=== PATIENT | male | born 1955 | race Hispanic/Latino ===

== ENCOUNTER 2018-07-21 08:15 | Emergency (ER) | payer BC ==
[2018-07-21] MEDS ORDERED: KETOROLAC 30 MG/ML INJ ONE (09:12)
[2018-07-21 09:17] LABS: Albumin 4.5 g/dL (3.4-5.0); Bilirubin Direct 0.3 mg/dL (0-0.2); Protein, Total 8.1 g/dL (6.4-8.2)
--- NOTE | 2018-07-21 09:24 | RAD REPORT ---
EXAM DESCRIPTION: CT - Stone Protocol - 07/21/2018 9:07 am CLINICAL HISTORY: Abdominal pain, right flank pain COMPARISON: None. TECHNIQUE: Axial 5 mm thick images were obtained without oral or IV contrast. The [id number] span s the entirety of the system including uppermost abdomen and lung bases. All CT scans are performed using dose optimization technique as appropriate and may include automated exposure control or mA/KV adjustment according to patient size. FINDINGS: Mild right-sided hydronephrosis is present secondary to a 5 millimeter distal right ureter al stone. This is less than 1 centimeter from the UVJ. Right kidney is mildly edematous and there is perinephric stranding present. No other obstructing or nonobstructing calculi on the right. No left-s ided kidney or left collecting system abnormality. No suspicious renal masses. Isodense masses and py elonephritis are not excluded on a stone protocol CT scan. No urinary bladder suspicious finding. No significant adrenal finding. No significant prostate gland finding. There is diffuse fatty infiltration of the liver. A 15 millimeter round low-density mass midline left lobe of the liver is most likely a cyst but not fully characterized. Spleen and pancreas show no vanessa picious findings. Multiple gallstones are present. No acute gallbladder finding seen. No biliary tree dilatation. No suspicious bowel findings. No mass or bulky lymphadenopathy. Small to moderate-sized fat only left inguinal hernia present. No f ree air, free fluid or pneumatosis. No significant bony abnormality. IMPRESSION: Mild right-sided hydronephrosis secondary to a 5 millimeter stone less than 1 centimeter from the UVJ. Isodense masses and pyelonephritis are not excluded on stone protocol technique. Multi stone cholelithiasis without active disease suspected. Diffuse fatty infiltration of the liver. Additional nonacute findings detailed in the body of the report.
[2018-07-21 09:43] LABS: Urine Bacteria NONE SEEN /HPF (NONE SEEN); Urine Culture Reflex Order NOT NEEDED; Urine RBC <5 /HPF (NONE SEEN)
--- NOTE | 2018-07-21 09:56 | ER ---
Nurse's Notes [facility] Name: Reese Goodrich Age: 62 yrs Sex: Male : 1955 Arrival Date: 07/21/2018 Time: 08:19 Bed 18 Private MD: Diagnosis: Hydronephrosis with renal and ureteral calculous obstruction Presentation: 07/21 08:20 Presenting complaint: Patient states: intermittent R flank pain that radiates to R ss lower quadrant that began 3 months ago, but has gotten much worse this morning at 0130. Pt also c/o nausea and unable to empty bladder. Transition of care: patient was not received from another setting of care. Onset of symptoms is unknown. Risk Assessment: Do you want to hurt yourself or someone else? Patient reports no desire to harm self or others. Initial Sepsis Screen: Does the patient meet any 2 criteria? No. Patient's initial sepsis screen is negative. Does the patient have a suspected source of infection? No. Patient's initial sepsis screen is negative. Care prior to arrival: None. 08:20 Method Of Arrival: Ambulatory ss 08:20 Acuity: NIKA 3 ss Historical: - Allergies: 08:23 No Known Allergies; ss - Home Meds: 08:23 None [Active]; ss - PMHx: 08:23 None; ss - PSHx: 08:23 Hernia repair; ss - Immunization history:: Adult Immunizations up to date. - Social history:: Smoking status: Patient/guardian denies using tobacco. - Ebola Screening: : Patient denies exposure to infectious person Patient denies travel to an Ebola-affected area in the 21 days before illness onset. Screenin:26 Abuse screen: Denies threats or abuse. Denies injuries from another. Nutritional ss screening: No deficits noted. Tuberculosis screening: No symptoms or risk factors identified. Never had TB. Fall Risk None identified. Assessment: 08:26 General: Appears uncomfortable, Behavior is calm, cooperative, Seems very ss uncomfortable, but is laughing with spouse and ED staff. Denies fever, feeling ill, fatigue, chills. Pain: Complains of pain in R flank Pain radiates to right lower quadrant Pain currently is 10 out of 10 on a pain scale. Quality of pain is described as sharp, stabbing, Pain began 3 months ago, but has gotten much more severe at 0130 this morning Is continuous, Noted to be grimacing. Pain: Noted to be guarding. Neuro: Level of Consciousness is awake, alert, obeys commands, Oriented to person, place, time, situation. Cardiovascular: Capillary refill < 3 seconds is brisk in bilateral fingers. Respiratory: Airway is patent Respiratory effort is even, unlabored, Respiratory pattern is regular, symmetrical. GI: Bowel sounds present X 4 quads. Abd is soft X 4 quads Reports nausea, Patient currently denies diarrhea, vomiting. : Reports inability to empty bladder since 0130 this am. Just small frequent amounts Denies. EENT: Nares are clear Oral mucosa is moist. Throat is clear. Derm: Skin is intact, is healthy with good turgor, Skin is dry, Skin is pink, warm \T\ dry. normal. Musculoskeletal: Circulation, motion, and sensation intact. Capillary refill < 3 seconds, is brisk, in bilateral fingers. Range of motion: intact in all extremities, Swelling absent. 09:44 Reassessment: Patient appears in no apparent distress at this time. Patient and/or em family updated on plan of care and expected duration. Pain level reassessed. Patient is alert, oriented x 3, equal unlabored respirations, skin warm/dry/pink. rates pain 5/10 Patient states feeling better. 10:25 Reassessment: Patient appears in no apparent distress at this time. Patient and/or em family updated on plan of care and expected duration. Pain level reassessed. Patient is alert, oriented x 3, equal unlabored respirations, skin warm/dry/pink. Patient denies pain at this time. Patient states feeling better. Patient states symptoms have improved. Vital Signs: 08:23 BP 157 / 111; Pulse 90; Resp 17; Temp 97.8(TE); Pulse Ox 97% on R/A; Weight 83.91 kg; Height 5 ft. 6 in. (167.64 cm); Pain 10/10; 09:23 BP 157 / 105; Pulse 88; Resp 18; Pulse Ox 97% on R/A; dh3 10:21 BP 143 / 96; Pulse 72; Resp 16; Pulse Ox 99% on R/A; Pain 0/10; em 08:23 Body Mass Index 29.86 (83.91 kg, 167.64 cm) ED Course: 08:19 Patient arrived in ED. as 08:22 Triage completed. 08:23 Arm band placed on right wrist. 08:26 Mary To, RN is Primary Nurse. 08:26 Patient has correct armband on for positive identification. Bed in low position. Call light in reach. Side rails up X 1. 08:26 Patient maintains SpO2 saturation greater than 95% on room air. 08:29 Inserted saline lock: 18 gauge in right antecubital area, using aseptic technique. 3 Blood collected. 08:42 Yuniel Schafer MD is Attending Physician. gs 09:04 CT completed. Patient moved to CT via wheelchair. Patient moved back from CT. bq 09:07 CT Stone Protocol In Process Unspecified. EDMS 09:20 Urine collected: clean catch specimen, clear. 3 09:55 Elsa Carmen MD is Referral Physician. gs 10:09 No provider procedures requiring assistance completed. IV discontinued, intact, em bleeding controlled, No redness/swelling at site. Pressure dressing applied. Administered Medications: 09:14 Drug: TORadol 30 mg Route: IVP; Site: right antecubital; ss 09:44 Follow up: Response: No adverse reaction; Pain is decreased em Outcome: 09:55 Discharge ordered by MD. gs 10:23 Discharged to home ambulatory, with family. em 10:23 Condition: good 10:23 Discharge instructions given to patient, family, Instructed on discharge instructions, follow up and referral plans. medication usage, Demonstrated understanding of instructions, follow-up care, medications, Prescriptions given X 1. 10:25 Patient left the ED. em Signatures: Dispatcher [employer] EDID Kaylyn Baez bq Jose Navas, SPAGHETTI MACHINE OPERATOR SPAGHETTI MACHINE OPERATOR em Mulu Gatica Shelby, NUNU RN June Ramires 3 Yuniel Schafer MD MD
--- NOTE | 2018-07-21 09:56 | EDPHYS ---
Physician Documentation [facility] Name: Reese Goodrich Age: 62 yrs Sex: Male : 1955 Arrival Date: 07/21/2018 Time: 08:19 Bed 18 Private MD: ED Physician Yuniel Schafer HPI: 07/21 09:53 This 62 yrs old Male presents to ER via Ambulatory with complaints of Flank gs Pain, Abdominal Pain. 09:53 The patient complains of pain in the right low back. The pain radiates to the right gs lower quadrant. Onset: The symptoms/episode began/occurred this morning. Modifying factors: The symptoms are alleviated by nothing. the symptoms are aggravated by nothing. Associated signs and symptoms: Pertinent negatives: hematuria. Severity of pain: At its worst the pain was severe in the emergency department the pain has improved mildly. The patient has experienced similar episodes in the past, a few times, but today's symptoms are worse. The patient has not recently seen a physician. Historical: - Allergies: 08:23 No Known Allergies; ss - Home Meds: 08:23 None [Active]; ss - PMHx: 08:23 None; ss - PSHx: 08:23 Hernia repair; ss - Immunization history:: Adult Immunizations up to date. - Social history:: Smoking status: Patient/guardian denies using tobacco. - Ebola Screening: : Patient denies exposure to infectious person Patient denies travel to an Ebola-affected area in the 21 days before illness onset. ROS: 09:53 All other systems are negative. gs Exam: 09:53 Head/Face: Normocephalic, atraumatic. Eyes: Pupils equal round and reactive to light, gs extra-ocular motions intact. Lids and lashes normal. Conjunctiva and sclera are non-icteric and not injected. Cornea within normal limits. Periorbital areas with no swelling, redness, or edema. ENT: Nares patent. No nasal discharge, no septal abnormalities noted. Tympanic membranes are normal and external auditory canals are clear. Oropharynx with no redness, swelling, or masses, exudates, or evidence of obstruction, uvula midline. Mucous membranes moist. Neck: Trachea midline, no thyromegaly or masses palpated, and no cervical lymphadenopathy. Supple, full range of motion without nuchal rigidity, or vertebral point tenderness. No Meningismus. Chest/axilla: Normal chest wall appearance and motion. Nontender with no deformity. No lesions are appreciated. 09:53 Cardiovascular: Regular rate and rhythm with a normal S1 and S2. No gallops, murmurs, or rubs. Normal PMI, no JVD. No pulse deficits. Respiratory: Lungs have equal breath sounds bilaterally, clear to auscultation and percussion. No rales, rhonchi or wheezes noted. No increased work of breathing, no retractions or nasal flaring. Abdomen/GI: Soft, non-tender, with normal bowel sounds. No distension or tympany. No guarding or rebound. No evidence of tenderness throughout. Skin: Warm, dry with normal turgor. Normal color with no rashes, no lesions, and no evidence of cellulitis. MS/ Extremity: Pulses equal, no cyanosis. Neurovascular intact. Full, normal range of motion. Neuro: Awake and alert, GCS 15, oriented to person, place, time, and situation. Cranial nerves II-XII grossly intact. Motor strength 5/5 in all extremities. Sensory grossly intact. Cerebellar exam normal. Normal gait. 09:53 Constitutional: The patient appears alert, awake. 09:53 Constitutional: The patient appears uncomfortable. 09:53 Back: CVA tenderness, that is mild, is noted on the right. Vital Signs: 08:23 BP 157 / 111; Pulse 90; Resp 17; Temp 97.8(TE); Pulse Ox 97% on R/A; Weight 83.91 kg; ss Height 5 ft. 6 in. (167.64 cm); Pain 10/10; 09:23 BP 157 / 105; Pulse 88; Resp 18; Pulse Ox 97% on R/A; dh3 10:21 BP 143 / 96; Pulse 72; Resp 16; Pulse Ox 99% on R/A; Pain 0/10; em 08:23 Body Mass Index 29.86 (83.91 kg, 167.64 cm) ss MDM: 08:47 Patient medically screened. gs 09:53 Differential diagnosis: nephrolithiasis, pyelonephritis, UTI. Data reviewed: vital gs signs, nurses notes. Counseling: I had a detailed discussion with the patient and/or guardian regarding: the historical points, exam findings, and any diagnostic results supporting the discharge/admit diagnosis, the presence of at least one elevated blood pressure reading (>120/80) during this emergency department visit, lab results, radiology results, the need for outpatient follow up, a urologist. Response to treatment: the patient's symptoms have markedly improved after treatment, and as a result, I will discharge patient. Special discussion: I have referred the patient to see his PCP for further evaluation of high blood pressure. 07/21 08:49 Order name: Creatinine for Radiology; Complete Time: 09:45 07/21 08:49 Order name: Hepatic Function; Complete Time: 09:45 gs 07/21 08:49 Order name: Lipase; Complete Time: 09:45 gs 07/21 08:49 Order name: Urine Microscopic Only; Complete Time: 09:45 07/21 08:49 Order name: CT Stone Protocol; Complete Time: 09:45 07/21 09:33 Order name: Urine Dipstick--Ancillary (enter results) bd 07/21 08:49 Order name: IV Saline Lock; Complete Time: 08:55 07/21 08:49 Order name: Labs collected and sent; Complete Time: 08:55 07/21 08:49 Order name: Urine Dipstick-Ancillary (obtain specimen); Complete Time: 09:23 gs Administered Medications: 09:14 Drug: TORadol 30 mg Route: IVP; Site: right antecubital; 09:44 Follow up: Response: No adverse reaction; Pain is decreased em Disposition: 07/21/18 09:55 Discharged to Home. Impression: Hydronephrosis with renal and ureteral calculous obstruction. - Condition is Stable. - Discharge Instructions: Kidney Stones, Hydronephrosis. - Prescriptions for Tylenol- Codeine #4 300-60 mg Oral Tablet - take 1 tablet by ORAL route every 6 hours As needed; 12 tablet. - Medication Reconciliation Form, Thank You Letter, Antibiotic Education, Prescription Opioid Use form. - Follow up: Elsa Carmen MD; When: 2 - 3 days; Reason: Re-evaluation by your physician. Signatures: Dispatcher [employer] EDOK Jose Navas LVN LVN em Smirch, Shelby, RN RN ss Yuniel Schafer MD MD Corrections: (The following items were deleted from the chart) 09:03 08:50 Stone Protocol ordered. EDMS EDMS 10:25 09:55 07/21/2018 09:55 Discharged to Home. Impression: Hydronephrosis with renal and em ureteral calculous obstruction. Condition is Stable. Forms are Medication Reconciliation Form, Thank You Letter, Antibiotic Education, Prescription Opioid Use. Follow up: Elsa Carmen; When: 2 - 3 days; Reason: Re-evaluation by your physician. gs
[2018-07-21 10:32] VITALS: TEMP 97.8
[2018-07-21 10:35] VITALS: BP 143/96; O2SAT 99
[2018-07-21 14:48] LABS: Urine Blood NEGATIVE (NEG); Urine Glucose NEGATIVE (NEG); Urine Protein TRACE (NEG)
== END 2018-07-21 10:25 | disposition home or self-care (01) ==
LOC: ER 08:15
DX: N13.2 Hydronephrosis with renal and ureteral calculous obstruction (principal)
CPT/HCPCS: 36415; 74176; 76377; 80076; 81003; 81015; 83690; 96374; 99285

== ENCOUNTER 2018-07-22 17:08 | Observation (INO) | payer BC ==
[2018-07-22] MEDS ORDERED: NA CHLORIDE 0.9% 1,000 ML ONE (18:19)
[2018-07-22] MEDS ORDERED: ONDANSETRON 4 MG/2 ML VIAL ONE (18:19)
[2018-07-22] MEDS ORDERED: MORPHINE 4 MG/ML SYR ONE (18:19)
[2018-07-22 19:20] LABS: Absolute Lymphocytes (CBC) 1.2 K/uL (0.7-4.9); Absolute Monocytes 1.2 K/uL (0.1-1.3); Absolute Neutrophil 11.3 K/uL (1.8-8.0); Basophils % 0.3 % (0-1.3); Hematocrit 46.7 % (39.6-49.0); Lymphocytes % 8.7 % (15.3-44.8); MPV 9.4 fL (7.6-11.3); Monocytes % 8.9 % (3.3-12.3); RBC Red Blood Cell Count 5.29 M/uL (4.33-5.43)
[2018-07-22 19:25] LABS: Albumin 3.8 g/dL (3.4-5.0); Bilirubin Direct 0.3 mg/dL (0-0.2); Potassium 3.9 mmol/L (3.5-5.1); Protein, Total 7.2 g/dL (6.4-8.2)
[2018-07-22] MEDS ORDERED: HYDROMORPHONE HCL 0.5 MG/0.5 ML INJ ONE (19:28)
--- NOTE | 2018-07-22 19:54 | RAD REPORT ---
EXAM DESCRIPTION: US - Abdomen Exam Limited - 07/22/2018 7:36 pm CLINICAL HISTORY: epigastric pain, right flank pain COMPARISON: No comparisons FINDINGS: The gallbladder demonstrates multiple shadowing gallstones. No pericholecystic fluid or ga llbladder wall thickening. The common bile duct is normal measuring 4 mm. The liver demonstrates no findings of intrahepatic biliary dilatation. IMPRESSION: Cholelithiasis.
--- NOTE | 2018-07-22 20:38 | EDPHYS ---
Physician Documentation [facility] Name: Reese Goodrich Age: 62 yrs Sex: Male : 1955 Arrival Date: 07/22/2018 Time: 17:11 Bed 30 Private MD: None, None ED Physician Yuniel Schafer HPI: 07/22 18:06 This 62 yrs old Male presents to ER via Ambulatory with complaints of Possible jmm Kidney Stone. 18:06 The patient complains of pain in the right flank. Onset: The symptoms/episode jmm began/occurred acutely, 2 day(s) ago. Modifying factors: The symptoms are alleviated by nothing. the symptoms are aggravated by nothing. Associated signs and symptoms: Pertinent positives: vomiting. 18:06 This is a 62 year old male with no chronic medical conditions that presents to the ED jm with right flank pain beginning approx 2 days ago. Was evaluated in the ED and diagnosed with a ureteral stone. Patient states having continued pain which has not been relieved with prescribed medication. . Historical: - Allergies: 17:16 No Known Allergies; aj1 - Home Meds: 17:16 Tylenol #3 Oral [Active]; aj1 - PMHx: 17:16 None; aj1 - PSHx: 17:16 Hernia repair; aj1 - Immunization history:: Flu vaccine is not up to date. - Social history:: Smoking status: Patient/guardian denies using tobacco. - Ebola Screening: : Patient denies travel to an Ebola-affected area in the 21 days before illness onset. ROS: 18:06 Constitutional: Negative for fever, chills, and weight loss, Eyes: Negative for injury, jmm pain, redness, and discharge, ENT: Negative for injury, pain, and discharge, Neck: Negative for injury, pain, and swelling, Cardiovascular: Negative for chest pain, palpitations, and edema, Respiratory: Negative for shortness of breath, cough, wheezing, and pleuritic chest pain. 18:06 Abdomen/GI: Positive for abdominal pain, nausea and vomiting. 18:06 Back: Positive for flank pain, on the right. 18:06 All other systems are negative. Exam: 18:06 Head/Face: atraumatic. Eyes: EOMI, no conjunctival erythema appreciated ENT: Moist jmm Mucus Membranes Neck: Trachea midline, Supple Chest/axilla: Normal chest wall appearance and motion. Cardiovascular: Regular rate and rhythm. No edema appreciated Respiratory: Normal respirations, no respiratory distress appreciated 18:06 Skin: General appearance color normal MS/ Extremity: Moves all extremities, no obvious deformities appreciated, no edema noted to the lower extremities Neuro: Awake and alert, normal gait Psych: Behavior is normal, Mood is normal, Patient is cooperative and pleasant 18:06 Constitutional: The patient appears alert, awake, uncomfortable. 18:06 Abdomen/GI: Inspection: abdomen appears normal, Bowel sounds: normal, Palpation: soft, in the right lower quadrant, moderate abdominal tenderness. 18:06 Back: ROM is normal, CVA tenderness, that is moderate, is noted on the right. Vital Signs: 17:16 BP 158 / 109; Pulse 103; Resp 20; Temp 98.4; Pulse Ox 95% on R/A; Weight 83.91 kg (R); aj1 Height 5 ft. 6 in. (167.64 cm) (R); Pain 10/10; 18:00 BP 156 / 103; Pulse 92; Resp 17; Pulse Ox 95% on R/A; tw2 19:01 BP 154 / 101; Pulse 89; Resp 17; Pulse Ox 95% on R/A; tw2 20:00 BP 158 / 101; Pulse 94; Resp 16 S; Temp 99.2(O); Pulse Ox 93% on R/A; bb 21:35 BP 143 / 102; Pulse 87; Resp 16 S; Pulse Ox 93% on R/A; Pain 0/10; bb 22:12 BP 134 / 100; Pulse 87; Resp 14 S; Pulse Ox 92% on R/A; bb 17:16 Body Mass Index 29.86 (83.91 kg, 167.64 cm) aj1 MDM: 18:06 Patient medically screened. [facility] 20:36 Data reviewed: vital signs, nurses notes. Counseling: I had a detailed discussion with fransico the patient and/or guardian regarding: the historical points, exam findings, and any diagnostic results supporting the discharge/admit diagnosis, lab results, radiology results, the need for further work-up and treatment in the hospital. ED course: I discussed the patient with Dr. Carmen whom will consult on admission. I discussed the patient with Dr. Mccray whom accepted admission. . 07/22 18:07 Order name: Basic Metabolic Panel; Complete Time: 19:40 [facility] 07/22 18:07 Order name: CBC with Diff; Complete Time: 19:40 [facility] 07/22 18:07 Order name: Creatinine for Radiology; Complete Time: 19:40 [facility] 07/22 18:07 Order name: Hepatic Function; Complete Time: 19:40 [facility] 07/22 18:07 Order name: Lipase; Complete Time: 19:40 [facility] 07/22 18:27 Order name: US Abdomen Limited; Complete Time: 20:13 [facility] 07/22 18:07 Order name: IV Saline Lock; Complete Time: 18:38 [facility] 07/22 18:07 Order name: Labs collected and sent; Complete Time: 18:38 [facility] 07/22 19:53 Order name: Abdomen 1 View (KUB) XRAY; Complete Time: 21:16 jm Administered Medications: 18:36 Drug: Zofran 4 mg Route: IVP; Site: right antecubital; ss 21:36 Follow up: Response: Nausea is decreased bb 18:38 Drug: NS 0.9% 1000 ml Route: IV; Rate: 1 bolus; Site: right antecubital; ss 18:38 Drug: morphine 4 mg Route: IVP; Site: right antecubital; ss 21:37 Follow up: Response: Pain is unchanged, physician notified bb 19:21 Drug: Dilaudid 0.5 mg Route: IVP; Site: right antecubital; la1 20:20 Follow up: Response: Pain is decreased bb Disposition: 07/22/18 20:38 Hospitalization ordered by Mirza Mccray for Observation. Preliminary diagnosis is Calculus of ureter. - Bed requested for Telemetry/MedSurg (observation). - Status is Observation. bb - Condition is Stable. - Problem is new. - Symptoms have worsened. UTI on Admission? No Addendum: 07/27/2018 01:33 Co-signature as Attending Physician, Yuniel Schafer MD. g s Signatures: Dispatcher [employer] EDMS Maggie White RN RN aj1 Lee Vivas PA PA jmm Chretien, Felicia, RN RN Kate iHnkle RN RN bb Mary To RN RN Tomasz Hassan RN RN la1 Yuniel Schafer MD MD Corrections: (The following items were deleted from the chart) 07/22 21:42 21:41 This is a 62 year old male with no chronic medical conditions that presents to [facility] the ED with right flank pain beginning approx 2 days ago. Was evaluated in the ED and diagnosed with a ureteral stone. Patient states having continued pain which has not been relieved with prescribed medication. . [facility] 22:35 20:38 Hospitalization Ordered by Mirza Mccray MD for Observation. Preliminary fc diagnosis is Calculus of ureter. Bed requested for Telemetry/MedSurg (observation). Status is Observation. Condition is Stable. Problem is new. Symptoms have worsened. UTI on Admission? No. [facility] 23:26 22:35 07/22/2018 20:38 Hospitalization Ordered by Mirza Mccray MD for Observation. bb Preliminary diagnosis is Calculus of ureter. Bed requested for Telemetry/MedSurg (observation). Status is Observation. Condition is Stable. Problem is new. Symptoms have worsened. UTI on Admission? No. [facility]
--- NOTE | 2018-07-22 20:38 | ER ---
Nurse's Notes [facility] Name: Reese Goodrich Age: 62 yrs Sex: Male : 1955 Arrival Date: 07/22/2018 Time: 17:11 Bed 30 Private MD: None, None Diagnosis: Calculus of ureter Presentation: 07/22 17:14 Presenting complaint: Patient states: Patient states that he was seen in this ER aj1 yesterday and diagnosed with kidney stone, but his pain is not getting any better. Transition of care: patient was not received from another setting of care. Onset of symptoms was July 2018. Risk Assessment: Do you want to hurt yourself or someone else? Patient reports no desire to harm self or others. Initial Sepsis Screen: Does the patient meet any 2 criteria? HR > 90 bpm. No. Patient's initial sepsis screen is negative. Does the patient have a suspected source of infection? Yes: Acute abdominal pain. Care prior to arrival: None. 17:14 Method Of Arrival: Ambulatory aj1 17:14 Acuity: NIKA 3 aj1 Triage Assessment: 17:16 General: Appears in no apparent distress. uncomfortable, Behavior is calm, cooperative, aj1 appropriate for age. Pain: Complains of pain in anterior aspect of right lateral abdomen and posterior aspect of right lateral abdomen Pain currently is 10 out of 10 on a pain scale. Neuro: Level of Consciousness is awake, alert, obeys commands. Cardiovascular: Patient's skin is warm and dry. Respiratory: Airway is patent Respiratory effort is even, unlabored, Respiratory pattern is regular, symmetrical. GI: Reports nausea, vomiting, Patient currently denies diarrhea. : Reports urinary frequency, flank pain. Historical: - Allergies: 17:16 No Known Allergies; aj1 - Home Meds: 17:16 Tylenol #3 Oral [Active]; aj1 - PMHx: 17:16 None; aj1 - PSHx: 17:16 Hernia repair; aj1 - Immunization history:: Flu vaccine is not up to date. - Social history:: Smoking status: Patient/guardian denies using tobacco. - Ebola Screening: : Patient denies travel to an Ebola-affected area in the 21 days before illness onset. Screenin:02 Abuse screen: Denies threats or abuse. Nutritional screening: No deficits noted. tw2 Tuberculosis screening: No symptoms or risk factors identified. Fall Risk None identified. Assessment: 17:40 General: Appears in no apparent distress. well groomed, Behavior is calm, cooperative, tw2 appropriate for age. Pain: Complains of pain in posterior aspect of right lateral abdomen and anterior aspect of right lateral abdomen. Pain: Pain radiates to back. Neuro: Level of Consciousness is awake, alert, obeys commands, Oriented to person, place, time, situation. Cardiovascular: Heart tones S1 S2 Capillary refill < 3 seconds Patient's skin is warm and dry. Respiratory: Airway is patent Respiratory effort is even, unlabored, Respiratory pattern is Breath sounds are clear bilaterally. GI: Abdomen is flat, Bowel sounds present X 4 quads. Abd is soft X 4 quads Reports upper abdominal pain. : No signs and/or symptoms were reported regarding the genitourinary system. EENT: No signs and/or symptoms were reported regarding the EENT system. Derm: No signs and/or symptoms reported regarding the dermatologic system. Skin is intact, is healthy with good turgor. Musculoskeletal: Range of motion: intact in all extremities. 18:45 Reassessment: Patient appears in no apparent distress at this time. No changes from tw2 previously documented assessment. Patient and/or family updated on plan of care and expected duration. Pain level reassessed. Patient is alert, oriented x 3, equal unlabored respirations, skin warm/dry/pink. 19:45 Reassessment: Patient and/or family updated on plan of care and expected duration. Pain bb level reassessed. Patient is alert, oriented x 3, equal unlabored respirations, skin warm/dry/pink. pt states pain medication helped a little, IV site intact, no erythema or edema noted awaiting disposition by ED provieder. 20:45 Reassessment: Patient is alert, oriented x 3, equal unlabored respirations, skin bb warm/dry/pink. pt verbalized understanding of and agrees to plan of care pt to be admitted for further evaluation and treatment awaiting room assignment family at bedside. 21:35 Reassessment: Patient and/or family updated on plan of care and expected duration. Pain bb level reassessed. Patient is alert, oriented x 3, equal unlabored respirations, skin warm/dry/pink. pt states he has no pain at this time. 22:11 Reassessment: No changes from previously documented assessment. Patient is alert, bb oriented x 3, equal unlabored respirations, skin warm/dry/pink. Vital Signs: 17:16 BP 158 / 109; Pulse 103; Resp 20; Temp 98.4; Pulse Ox 95% on R/A; Weight 83.91 kg (R); aj1 Height 5 ft. 6 in. (167.64 cm) (R); Pain 10/10; 18:00 BP 156 / 103; Pulse 92; Resp 17; Pulse Ox 95% on R/A; tw2 19:01 BP 154 / 101; Pulse 89; Resp 17; Pulse Ox 95% on R/A; tw2 20:00 BP 158 / 101; Pulse 94; Resp 16 S; Temp 99.2(O); Pulse Ox 93% on R/A; bb 21:35 BP 143 / 102; Pulse 87; Resp 16 S; Pulse Ox 93% on R/A; Pain 0/10; bb 22:12 BP 134 / 100; Pulse 87; Resp 14 S; Pulse Ox 92% on R/A; bb 17:16 Body Mass Index 29.86 (83.91 kg, 167.64 cm) [facility] ED Course: 17:11 Patient arrived in ED. sb2 17:12 None, None is Private Physician. sb2 17:15 Triage completed. aj1 17:16 Arm band placed on Patient placed in waiting room, Patient notified of wait time. [facility] 17:42 Lee Vivas PA is PHCP. [facility] 17:42 Yuniel Schafer MD is Attending Physician. [facility] 17:56 Angie Akins RN is Primary Nurse. tw2 18:02 Placed in gown. Bed in low position. Pulse ox on. NIBP on. tw2 18:36 Inserted saline lock: 20 gauge in right antecubital area, using aseptic technique. tw2 ,using aseptic technique. NUNU Hernandez Blood collected. 19:00 Report given to NUNU Love. tw2 19:31 Ultrasound completed. Patient tolerated well. sg3 19:36 US Abdomen Limited In Process Unspecified. EDMS 20:30 Abdomen 1 View (KUB) XRAY In Process Unspecified. EDMS 20:31 X-ray completed. Portable x-ray completed in exam room. Patient tolerated procedure la2 well. 20:37 Mirza Mccray MD is Hospitalizing Provider. [facility] 22:58 No provider procedures requiring assistance completed. Patient admitted, IV remains in bb place. Administered Medications: 18:36 Drug: Zofran 4 mg Route: IVP; Site: right antecubital; ss 21:36 Follow up: Response: Nausea is decreased bb 18:38 Drug: NS 0.9% 1000 ml Route: IV; Rate: 1 bolus; Site: right antecubital; ss 18:38 Drug: morphine 4 mg Route: IVP; Site: right antecubital; ss 21:37 Follow up: Response: Pain is unchanged, physician notified bb 19:21 Drug: Dilaudid 0.5 mg Route: IVP; Site: right antecubital; la1 20:20 Follow up: Response: Pain is decreased bb Outcome: 20:38 Decision to Hospitalize by Provider. [facility] 22:58 Admitted to Tele accompanied by tech, family with patient, via wheelchair, room 406, bb with chart, Report called to Je EDDY 22:58 Condition: stable 22:58 Instructed on the need for admit. 23:26 Patient left the ED. bb Signatures: Dispatcher [employer] EDMS Maggie White RN RN aj1 Lee Vivas PA PA [facility] Kate Hinkle RN RN Mary To RN RN Tomasz Hassan RN RN la1 Angie Akins RN RN tw2 Donna Felder la2 Nidhi Galindo 3 Savanah Lombardo2
--- NOTE | 2018-07-22 20:41 | RAD REPORT ---
EXAM DESCRIPTION: RAD - Abdomen 1 View (KUB) - 07/22/2018 8:33 pm CLINICAL HISTORY: right flank pain Pain COMPARISON: Stone Protocol dated 07/21/2018; Abdomen Exam Limited dated 07/22/2018 FINDINGS: The bowel gas pattern is non-obstructive. No evidence of free air or pneumatosis. Small ca lcification projects over the right sacral ala inferiorly, likely a small UVJ stone.
--- NOTE | 2018-07-22 22:27 | P.HP ---
Certification for Inpatient Patient admitted to: Observation With expected LOS: <2 Midnights Practitioner: I am a practitioner with admitting privileges, knowledge of patient current condition, hospital course, and medical plan of care. Services: Services provided to patient in accordance with Admission requirements found in Title 42 Section 412.3 of the Code of Federal Regulations Patient History Date of Service: 07/22/18 Reason for admission: ureterolithiasis History of Present Illness: Mr Goodrich is a 62 years old male who start about 2 month ago with intermittent episodes of right flank pain selfelimited. Yesterday, his pain was more persistent and intense, so he came to ED, CT abd was remarkable for right UVJ 5 mm stone leading with mild right hydronephrosis. Also perinephric stranding and multiple gallstones. The patient was discharged home with follow up recommendations. However, today the patient continue with severe pain, has had nausea and vomiting, and decided to come back to ER for further evaluation. He was tachycardic, afebrile. Home medications list reviewed: Yes - Past Medical/Surgical History Has patient received pneumonia vaccine in the past: Yes Past Medical History: Reviewed- Non-Contributory -: hernia repair - Family History Family History: Reviewed- Non-Contributory - Social History Smoking Status: Former smoker Alcohol use: No CD- Drugs: No Place of Residence: Home Review of Systems 10-point ROS is otherwise unremarkable Physical Examination - Physical Exam General: Alert, In no apparent distress HEENT: Atraumatic, PERRLA, Mucous membr. moist/pink, EOMI, Sclerae nonicteric Neck: Supple, 2+ carotid pulse no bruit, No LAD, Without JVD or thyroid abnormality Respiratory: Clear to auscultation bilaterally, Normal air movement Cardiovascular: Regular rate/rhythm, Normal S1 S2 Gastrointestinal: Normal bowel sounds, Tenderness (right flank) Musculoskeletal: No tenderness Integumentary: No rashes Neurological: Normal gait, Normal speech, Normal strength at 5/5 x4 extr, Normal tone, Normal affect Lymphatics: No axilla or inguinal lymphadenopathy - Studies Laboratory Data (last 24 hrs) 07/22/18 18:37: Creatinine 1.69 H 07/22/18 18:37: WBC 13.8 H, Hgb 16.0, Hct 46.7, Plt Count 207 07/22/18 18:37: Sodium 133 L, Potassium 3.9, BUN 19 H, Creatinine 1.71 H, Glucose 112 H, Total Bilirubin 1.0, AST 24, ALT 42, Alkaline Phosphatase 65, Lipase 259 Assessment and Plan - Problems (Diagnosis) (1) Ureterolithiasis Current Visit: Yes Status: Acute (2) Hydronephrosis Current Visit: Yes Status: Acute Qualifiers: Hydronephrosis type: with renal calculous obstruction Qualified Code(s): N13.2 - Hydronephrosis with renal and ureteral calculous obstruction (3) Gallstones Current Visit: Yes Status: Acute (4) Pyelonephritis Current Visit: Yes Status: Acute (5) Acute kidney injury Current Visit: Yes Status: Acute - Plan The patient will be started on empiric antibiotics, keep NPO after MN for potential intervention in AM, Dr Carmen consulted. - Advance Directives Does patient have a Living Will: No Does patient have a Durable POA for Healthcare: No - Code Status/Comfort Care Code Status Assessed: Yes Code Status: Full Code
[2018-07-22] MEDS ORDERED: CEFTRIAXONE 1 GM/50 ML BAG IV SCH (23:00)
[2018-07-22 23:25] VITALS: BMI 31.4
[2018-07-22] MEDS ORDERED: ONDANSETRON 4 MG/2 ML VIAL IV PRN (23:32)
[2018-07-22] MEDS ORDERED: ACETAMINOPHEN 500 MG TAB PO PRN (23:32)
[2018-07-22] MEDS: NA CHLORIDE 0.9% 1,000 ML IV SCH (23:32)
[2018-07-23] MEDS ORDERED: MORPHINE 2 MG/ML SYR IV PRN (00:18)
[2018-07-23] MEDS: CEFTRIAXONE/SWI 1gm 1 GM/10 ML SYR IV SCH ×2 (00:52→21:15)
[2018-07-23] MEDS: MORPHINE 4 MG/ML SYR IV PRN ×2 (00:56→04:59)
[2018-07-23 01:26] LABS: Urine Appearance CLEAR; Urine Bilirubin NEGATIVE (NEG); Urine Blood NEGATIVE (NEG); Urine Color YELLOW; Urine Glucose NEGATIVE (NEG); Urine Protein NEGATIVE (NEG); Urine Specific Gravity 1.015 (1.005-1.030); Urine pH 5.5 (5.0-7.0)
[2018-07-23 01:37] LABS: Urine Microscopic Reflex NO UMIC
[2018-07-23 06:26] LABS: Absolute Monocytes 1.1 K/uL (0.1-1.3); Absolute Neutrophil 9.4 K/uL (1.8-8.0); Basophils % 0.1 % (0-1.3); Hematocrit 44.4 % (39.6-49.0); Lymphocytes % 8.5 % (15.3-44.8); MPV 9.2 fL (7.6-11.3); Monocytes % 9.7 % (3.3-12.3); RBC Red Blood Cell Count 5.06 M/uL (4.33-5.43)
[2018-07-23 06:33] LABS: Potassium 4.1 mmol/L (3.5-5.1)
[2018-07-23] MEDS: NA CHLORIDE 0.9% 1,000 ML IV SCH ×2 (09:01→18:54)
[2018-07-23] MEDS: KETOROLAC 30 MG/ML INJ IM PRN ×3 (10:13→23:10)
--- NOTE | 2018-07-23 14:54 | P.PN ---
Subjective Date of Service: 07/23/18 Chief Complaint: ureterolithiasis Subjective: No C/O voiced, Ambulating, Improving, Doing well Review of Systems 10-point ROS is otherwise unremarkable Physical Examination - Vital Signs Temperature: 97.9 F Blood Pressure: 142/96 Pulse: 88 Respirations: 18 Pulse Ox (%): 93 - Physical Exam General: Alert, In no apparent distress HEENT: Atraumatic, PERRLA, EOMI Neck: Supple, JVD not distended Respiratory: Clear to auscultation bilaterally, Normal air movement Cardiovascular: Regular rate/rhythm, Normal S1 S2 Gastrointestinal: Normal bowel sounds, No tenderness Musculoskeletal: No tenderness Integumentary: No rashes Neurological: Normal speech, Normal tone, Normal affect Lymphatics: No axilla or inguinal lymphadenopathy - Studies Laboratory Data (last 24 hrs) 07/22/18 18:37: Creatinine 1.69 H 07/22/18 18:37: WBC 13.8 H, Hgb 16.0, Hct 46.7, Plt Count 207 07/22/18 18:37: Sodium 133 L, Potassium 3.9, BUN 19 H, Creatinine 1.71 H, Glucose 112 H, Total Bilirubin 1.0, AST 24, ALT 42, Alkaline Phosphatase 65, Lipase 259 Medications List Reviewed: Yes Assessment And Plan - Current Problems (Diagnosis) (1) Ureterolithiasis Onset Date: 07/23/18 Current Visit: Yes Status: Acute Plan: Small UPJ stone. Failed Outpt therapy -Urology consulted. Appreciated recommendation at this time -ESWL scheduled for tomorrow -NPO, IV fluids and antibiotics at this time (2) Acute kidney injury Onset Date: 07/23/18 Current Visit: Yes Status: Acute Plan: Most likely secondary to obstructive uropathy -IV fluids at this time. -avoid nephrotoxic agent continue to monitor closely Discharge Plan: Home Plan to discharge in: 48 Hours - Code Status/Comfort Care Code Status Assessed: Yes Critical Care: No
[2018-07-23] MEDS ORDERED: HYDRALAZINE HCL 20 MG/ML VIAL IV ONE (16:48)
--- NOTE | 2018-07-23 21:16 | CON ---
History Of Present Illness: This is a 62-year-old male, who began having intermittent pain, right fl ank 2 months ago that was self-limited. He came to the ER [address] scan was done showing a 5 mm stone at the right UVJ with mild hydronephrosis. Returned yesterday for similar pain. KUB shows stone in the same place and was made n.p.o. overnight. We discussed the options with him today inclu ding cysto, ureteroscopy, stone basket, possible lithotripsy and removal of stent placement tonight v ersus ESWL in the morning when the machine is here. He wishes to do the option #2. He was given all the general information, alternatives, and risks. The patient was not coerced and the patient was c ompetent to sign his own informed consent. Past Medical History: Hernia repair in the past. Family History: Noncontributory. Social History: Former smoker. No alcohol use. No drug use. Resides at home. His is present in the room. Review of Systems: Ten-point review of system otherwise unremarkable. Physical Examination: General: The patient is alert, oriented, in no acute distress. HEENT: Atraumatic, normocephalic. Neck: Supple. Respiratory: Clear. Heart: S1, S2. Gastrointestinal: Normal sounds, nontender. Musculoskeletal: Nontender. Skin: No rashes. : Both testicles descended. Also uncircumcised. No lesions. Extremities: Normal range of motion. Laboratory Data: White count 13.8, 11.5, H and H 46.7 and 44.4, platelet count 207, 213. Chemistry, sodium 135, potassium 4.1, chloride 102, carbon dioxide 27, BUN 19, creatinine 1.6, GFR 44, glucose 114, calcium 8.1. Urine study negative, pH 5.5. Assessment And Plan: A 5 mm stone, right ureterovesical junction. Options discussed with the patien t including ureteroscopy versus ESWL. He chose to go ESWL route. He will be made n.p.o. overnight a nd informed consent will be obtained and will proceed in a.m. ABDI/SINDY Voice ID: [id number] Report ID: [id number]
[2018-07-24] MEDS: NA CHLORIDE 0.9% 1,000 ML IV SCH (06:26)
--- NOTE | 2018-07-24 08:51 | RAD REPORT ---
EXAM DESCRIPTION: RAD - Abdomen 1 View (KUB) - 07/24/2018 8:11 am CLINICAL HISTORY: check for gallstones Pain COMPARISON: Abdomen 1 View (KUB) dated 07/22/2018; Stone Protocol dated 07/21/2018 FINDINGS: The bowel gas pattern is non-obstructive. No evidence of free air or pneumatosis. Small ob long calcific densities seen in region of the right UVJ. No significant bony findings. Prominent stool in the colon. IMPRESSION: Small oblong right UVJ stone.
[2018-07-24] MEDS ORDERED: FENTANYL CITR 100 MCG/2 ML ONE (10:28)
[2018-07-24] MEDS ORDERED: PROPOFOL 200 MG/20 ML VIAL IV ONE (10:28)
[2018-07-24] MEDS ORDERED: LIDOCAINE 2% MPF 5 ML VIAL ONE (10:29)
[2018-07-24] MEDS ORDERED: MIDAZOLAM HCL 2 MG/2 ML INJ ONE (10:29)
[2018-07-24 12:30] VITALS: O2SAT 96
[2018-07-24] MEDS: KETOROLAC 30 MG/ML INJ IM PRN (13:10)
--- NOTE | 2018-07-24 13:14 | P.DS ---
Admission Date: 07/22/18 Discharge Date: 07/24/18 Disposition: ROUTINE DISCHARGE Discharge Condition: GOOD Reason for Admission: ureterolithiasis Consultations: Urology - Problems (1) Ureterolithiasis Onset Date: 07/23/18 Current Visit: Yes Status: Acute (2) Acute kidney injury Onset Date: 07/23/18 Current Visit: Yes Status: Acute Brief History of Present Illness: Mr Goodrich is a 62 years old male who start about 2 month ago with intermittent episodes of right flank pain selfelimited. Yesterday, his pain was more persistent and intense, so he came to ED, CT abd was remarkable for right UVJ 5 mm stone leading with mild right hydronephrosis. Also perinephric stranding and multiple gallstones. The patient was discharged home with follow up recommendations. However, today the patient continue with severe pain, has had nausea and vomiting, and decided to come back to ER for further evaluation. He was tachycardic, afebrile. Hospital Course: Overall during the hospital stay patient remained stable Patient was initially admitted to the hospital for urolithiasis of the right UPJ. Urology was consulted. Patient had lithotripsy done here in the hospital. Patient has stent placement for the right UPJ stone. Patient had marked improvement in his symptoms and thus was discharged home under stable condition was asked to follow up with urology in about 1-2 days post discharge to remove the stent if needed. Vital Signs/Physical Exam: Temp Pulse Resp BP Pulse Ox 97.9 F 91 H 18 125/88 93 07/24/18 12:27 07/24/18 12:27 07/24/18 12:27 07/24/18 12:27 07/24/18 08:00 General: Alert, In no apparent distress HEENT: Atraumatic, PERRLA, EOMI Neck: Supple, JVD not distended Respiratory: Clear to auscultation bilaterally, Normal air movement Cardiovascular: Regular rate/rhythm, Normal S1 S2 Gastrointestinal: Normal bowel sounds, No tenderness Musculoskeletal: No tenderness Integumentary: No rashes Neurological: Normal speech, Normal tone, Normal affect Lymphatics: No axilla or inguinal lymphadenopathy Laboratory Data at Discharge: WBC 11.5 K/uL (4.3-10.9) H D 07/23/18 05:40 Hgb 15.8 g/dL (13.6-17.9) 07/23/18 05:40 Hct 44.4 % (39.6-49.0) 07/23/18 05:40 Plt Count 213 K/uL (152-406) 07/23/18 05:40 Sodium 135 mmol/L (136-145) L 07/23/18 05:40 Potassium 4.1 mmol/L (3.5-5.1) 07/23/18 05:40 BUN 19 mg/dL (7-18) H 07/23/18 05:40 Creatinine 1.61 mg/dL (0.55-1.3) H 07/23/18 05:40 Glucose 114 mg/dL (74-106) H 07/23/18 05:40 Total Bilirubin 1.0 mg/dL (0.2-1.0) 07/22/18 18:37 AST 24 U/L (15-37) 07/22/18 18:37 ALT 42 U/L (12-78) 07/22/18 18:37 Alkaline Phosphatase 65 U/L (45-117) 07/22/18 18:37 Lipase 259 U/L (73-393) 07/22/18 18:37 Home Medications: Acetaminophen with Codeine [Acetaminophen-Cod #4 Tablet] 1 tab PO Q6H PRN Diet: Regular Activity: Ad morgan Followup: Elsa Carmen MD [ACTIVE - CAN ADMIT] - 1 Week
[2018-07-24 16:55] VITALS: BP 131/74; TEMP 98
== END 2018-07-24 17:15 | disposition home or self-care (01) ==
LOC: ER 17:08 → ERHOLD 21:59 → 4TH 23:04
PROVIDERS: ADMIT Internal Medicine; ATTEND Internal Medicine
PROC: 0TF6XZZ Fragmentation in Right Ureter, External Approach (ICD-10-PCS; principal; 2018-07-24 14:30)
DX: N13.2 Hydronephrosis with renal and ureteral calculous obstruction (principal); N17.9 Acute kidney failure, unspecified; K80.80 Other cholelithiasis without obstruction
CPT/HCPCS: 36415; 50590; 74018; 76705; 80048; 80076; 81003; 83690; 85025; 96374; 96375; 99285; G0378; J0360; J0696; J1170; J2250; J2405; J2704; J3010; J7030

== ENCOUNTER 2018-07-25 20:04 | Emergency (ER) | payer BC ==
[2018-07-25] MEDS ORDERED: KETOROLAC 30 MG/ML INJ ONE (20:44)
[2018-07-25] MEDS ORDERED: ONDANSETRON 4 MG/2 ML VIAL ONE (20:44)
[2018-07-25] MEDS ORDERED: NA CHLORIDE 0.9% 1,000 ML ONE ×2 (20:44→22:19)
[2018-07-25] MEDS ORDERED: MORPHINE 4 MG/ML SYR ONE (20:44)
[2018-07-25 20:50] LABS: Absolute Lymphocytes (CBC) 2.1 K/uL (0.7-4.9); Absolute Monocytes 0.8 K/uL (0.1-1.3); Absolute Neutrophil 5.4 K/uL (1.8-8.0); Basophils % 0.8 % (0-1.3); Eosinophils % 1.6 % (0-4.4); Hematocrit 45.8 % (39.6-49.0); Lymphocytes % 24.7 % (15.3-44.8); Monocytes % 9.1 % (3.3-12.3); RBC Red Blood Cell Count 5.28 M/uL (4.33-5.43)
--- NOTE | 2018-07-25 21:00 | RAD REPORT ---
EXAM DESCRIPTION: CT - Stone Protocol - 07/25/2018 8:50 pm CLINICAL HISTORY: Flank pain. FLANK PAIN COMPARISON: Stone Protocol dated 07/21/2018; Abdomen 1 View (KUB) dated 07/24/2018; Abdomen 1 View (KU B) dated 07/22/2018 TECHNIQUE: Axial images were obtained without oral or IV contrast. Lack of contrast limits solid org an and vascular assessment. The [id number] spans the entirety of the system partially obscuring uppermost abdomen and lung bases. Coronal reformatted images were obtained and reviewed. All CT scans are performed using dose optimization technique as appropriate and may include automated exposure control or mA/KV adjustment according to patient size. FINDINGS: Mild linear subsegmental atelectasis in the left lung base. Noncontrast imaging of the liver demonstrates small oblong cyst in the left lobe measuring 19 mm. No intrahepatic biliary dilatation. The spleen is unremarkable.Several gallstones are present gallbladde r. The pancreas and adrenal glands are normal. No pathologic lymphadenopathy in the abdomen or pelvis . Mild right hydronephrosis and right hydroureter is present. Fragmented calculi noted at the right UVJ , the largest fragment measuring 3 mm. No bowel obstruction, free air, free fluid or abscess. Normal appendix noted.Mild inflammatory change s are seen in the small bowel mesentery on today's study, which may indicate a mild nonspecific mesen teritis. Moderate fat containing left inguinal hernia. L5-S1 spondylosis. IMPRESSION: Previously noted the distal right ureter stone has been fragmented with the stone fragme nts at the right UVJ, largest measuring 3 mm. Mild right hydronephrosis and hydroureter is present. Inflammatory changes, mild, are present in the small bowel mesentery on today's study, which may panchito josemanuel a nonspecific mesenteritis. Cholelithiasis.
[2018-07-25 21:02] LABS: Urine Blood 2+ (NEG); Urine Glucose NEGATIVE (NEG); Urine Protein NEGATIVE (NEG)
[2018-07-25 21:09] LABS: Albumin 3.6 g/dL (3.4-5.0); Bilirubin Direct 0.2 mg/dL (0-0.2); Bilirubin Total 0.5 mg/dL (0.2-1.0); Potassium 3.5 mmol/L (3.5-5.1); Protein, Total 7.5 g/dL (6.4-8.2)
[2018-07-25] MEDS ORDERED: TAMSULOSIN 0.4 MG SR CAP ONE (22:12)
[2018-07-25] MEDS ORDERED: CEFTRIAXONE/SWI 1gm 1 GM/10 ML SYR ONE (22:12)
--- NOTE | 2018-07-25 22:14 | EDPHYS ---
Physician Documentation [facility] Name: Reese Goodrich Age: 62 yrs Sex: Male : 1955 Arrival Date: 07/25/2018 Time: 20:07 Bed 3 Private MD: ED Physician Silverio Loya HPI: 07/25 22:10 This 62 yrs old Male presents to ER via Wheelchair with complaints of Possible sarah Kidney Stone. 22:10 The patient presents with abdominal pain. Onset: The symptoms/episode began/occurred sarah this morning, today. The patient presents with pain that is acute, with no known mechanism of injury. The symptoms are located in the right mid back and right low back. Onset: The symptoms/episode began/occurred just prior to arrival, today. The pain radiates to the right mid back and right low back. Associated signs and symptoms: The patient has no apparent associated signs or symptoms. Severity of symptoms: At their worst the symptoms were moderate, in the emergency department the symptoms are unchanged. Historical: - Allergies: 20:15 No Known Allergies; aa1 - Home Meds: 20:15 Hydrocodone-Acetaminophen Oral [Active]; aa1 - PMHx: 20:15 Kidney stones; aa1 - PSHx: 20:15 Hernia repair; Lithotripsy; aa1 - Immunization history:: Flu vaccine is not up to date. - Social history:: Smoking status: Patient/guardian denies using tobacco. - Ebola Screening: : Patient denies exposure to infectious person Patient denies travel to an Ebola-affected area in the 21 days before illness onset No symptoms or risks identified at this time. - Family history:: not pertinent. ROS: 22:10 Constitutional: Negative for fever, chills, and weight loss, Eyes: Negative for injury, sarah pain, redness, and discharge, ENT: Negative for injury, pain, and discharge, Neck: Negative for injury, pain, and swelling, Cardiovascular: Negative for chest pain, palpitations, and edema, Respiratory: Negative for shortness of breath, cough, wheezing, and pleuritic chest pain, Abdomen/GI: Negative for abdominal pain, nausea, vomiting, diarrhea, and constipation, : Negative for injury, bleeding, discharge, and swelling, MS/Extremity: Negative for injury and deformity, Skin: Negative for injury, rash, and discoloration, Neuro: Negative for headache, weakness, numbness, tingling, and seizure, Psych: Negative for depression, anxiety, suicide ideation, homicidal ideation, and hallucinations, Allergy/Immunology: Negative for hives, rash, and allergies, Endocrine: Negative for neck swelling, polydipsia, polyuria, polyphagia, and marked weight changes, Hematologic/Lymphatic: Negative for swollen nodes, abnormal bleeding, and unusual bruising. 22:10 Back: Positive for pain at rest, flank pain, on the right, radiated pain, of the right mid back and right low back. Exam: 22:10 Constitutional: This is a well developed, well nourished patient who is awake, alert, sarah and in no acute distress. Head/Face: Normocephalic, atraumatic. Eyes: Pupils equal round and reactive to light, extra-ocular motions intact. Lids and lashes normal. Conjunctiva and sclera are non-icteric and not injected. Cornea within normal limits. Periorbital areas with no swelling, redness, or edema. ENT: Nares patent. No nasal discharge, no septal abnormalities noted. Tympanic membranes are normal and external auditory canals are clear. Oropharynx with no redness, swelling, or masses, exudates, or evidence of obstruction, uvula midline. Mucous membranes moist. Neck: Trachea midline, no thyromegaly or masses palpated, and no cervical lymphadenopathy. Supple, full range of motion without nuchal rigidity, or vertebral point tenderness. No Meningismus. Chest/axilla: Normal chest wall appearance and motion. Nontender with no deformity. No lesions are appreciated. Cardiovascular: Regular rate and rhythm with a normal S1 and S2. No gallops, murmurs, or rubs. Normal PMI, no JVD. No pulse deficits. Respiratory: Lungs have equal breath sounds bilaterally, clear to auscultation and percussion. No rales, rhonchi or wheezes noted. No increased work of breathing, no retractions or nasal flaring. Abdomen/GI: Soft, non-tender, with normal bowel sounds. No distension or tympany. No guarding or rebound. No evidence of tenderness throughout. Back: No spinal tenderness. No costovertebral tenderness. Full range of motion. Male : Normal genitalia with no discharge or lesions. Skin: Warm, dry with normal turgor. Normal color with no rashes, no lesions, and no evidence of cellulitis. MS/ Extremity: Pulses equal, no cyanosis. Neurovascular intact. Full, normal range of motion. Neuro: Awake and alert, GCS 15, oriented to person, place, time, and situation. Cranial nerves II-XII grossly intact. Motor strength 5/5 in all extremities. Sensory grossly intact. Cerebellar exam normal. Normal gait. Psych: Awake, alert, with orientation to person, place and time. Behavior, mood, and affect are within normal limits. Vital Signs: 20:15 BP 156 / 102; Pulse 81; Resp 28; Temp 97.3; Pulse Ox 97% on R/A; Weight 85.73 kg; aa1 Height 5 ft. 6 in. (167.64 cm); Pain 10/10; 21:20 BP 128 / 91; Pulse 76; Resp 16; Pulse Ox 95% on R/A; Pain 2/10; ed1 21:21 Pain 2/10; ed1 21:22 Pain 2/10; ed1 23:26 BP 117 / 76; Pulse 70; Resp 16; Temp 97.5(O); Pulse Ox 100% on R/A; Pain 0/10; ed1 20:15 Body Mass Index 30.51 (85.73 kg, 167.64 cm) aa1 MDM: 20:32 Patient medically screened. [facility] 22:12 Data reviewed: vital signs, nurses notes, lab test result(s), radiologic studies, CT sarah scan. 07/25 20:31 Order name: Basic Metabolic Panel; Complete Time: 21:44 [facility] 07/25 20:31 Order name: CBC with Diff; Complete Time: 21:44 [facility] 07/25 20:31 Order name: Creatinine for Radiology; Complete Time: 21:44 [facility] 07/25 20:31 Order name: Hepatic Function; Complete Time: 21:44 [facility] 07/25 20:31 Order name: Lipase; Complete Time: 21:44 [facility] 07/25 20:31 Order name: Urine Culture [facility] 07/25 20:31 Order name: CT Stone Protocol; Complete Time: 21:44 [facility] 07/25 20:47 Order name: Urine Dipstick--Ancillary (enter results); Complete Time: 21:44 ag4 07/25 20:31 Order name: IV Saline Lock; Complete Time: 20:53 [facility] 07/25 20:31 Order name: Labs collected and sent; Complete Time: 20:53 [facility] 07/25 20:31 Order name: Urine Dipstick-Ancillary (obtain specimen); Complete Time: 20:53 [facility] Administered Medications: 20:42 Drug: NS 0.9% 1000 ml Route: IV; Rate: 1 bolus; Site: right antecubital; ed1 22:08 Follow up: IV Status: Completed infusion; IV Intake: 1000ml ed1 20:42 Drug: TORadol 30 mg Route: IVP; Site: right antecubital; ed1 21:22 Follow up: Pain 2/10 Adult; Response: No adverse reaction; Pain is decreased ed1 20:43 Drug: morphine 4 mg Route: IVP; Site: right antecubital; ed1 21:21 Follow up: Pain 2/10 Adult; Response: No adverse reaction; Pain is decreased ed1 20:46 Drug: Zofran 4 mg Route: IVP; Site: right antecubital; ed1 21:21 Follow up: Response: No adverse reaction; Nausea is decreased ed1 22:07 Drug: Rocephin - (cefTRIAXone) 1 grams Route: IVPB; Infused Over: 30 mins; Site: right ed1 antecubital; 22:20 Follow up: Response: No adverse reaction; IV Status: Completed infusion; IV Intake: [id number] 22:08 Drug: Flomax 0.4 mg Route: PO; ed1 23:28 Follow up: Response: No adverse reaction ed1 22:11 Drug: NS 0.9% 1000 ml Route: IV; Rate: 1 bolus; Site: right antecubital; ed1 23:28 Follow up: IV Status: Completed infusion; IV Intake: 1000ml ed1 Disposition: 07/25/18 22:14 Discharged to Home. Impression: Hydronephrosis with renal and ureteral calculous obstruction. - Condition is Stable. - Discharge Instructions: Kidney Stones, Kidney Stones, [id number], Hydronephrosis, Dietary Guidelines to Help Prevent Kidney Stones. - Prescriptions for Tylenol- Codeine #3 300-30 mg Oral Tablet - take 2 tablet by ORAL route every 6 hours As needed; 30 tablet. Zofran 4 mg Oral Tablet - take 1 tablet by ORAL route every 12 hours As needed; 20 tablet. Flomax 0.4 mg Oral Capsule, Sust. Release 24 hr - take 1 capsule by ORAL route once daily 1/2 hour following the same meal each day; 30 capsule. Cipro 500 mg Oral Tablet - take 1 tablet by ORAL route every 12 hours for 7 days; 14 tablet. - Medication Reconciliation Form, Thank You Letter, Antibiotic Education, Prescription Opioid Use form. - Follow up: Private Physician; When: 2 - 3 days; Reason: Recheck today's complaints, Continuance of care, Re-evaluation by your physician. Follow up: Elsa Carmen MD; When: 2 - 3 days; Reason: Recheck today's complaints, Continuance of care, Re-evaluation by your physician. - Problem is new. - Symptoms have improved. Signatures: Dispatcher [employer] EDMS Rebeca Khan RN RN aa1 Silverio Loya MD MD cha Riggs, Erika, RN RN ed1 Corrections: (The following items were deleted from the chart) 22:14 22:14 07/25/2018 22:14 Discharged to Home. Impression: Hydronephrosis with renal and sarah ureteral calculous obstruction. Condition is Stable. Forms are Medication Reconciliation Form, Thank You Letter, Antibiotic Education, Prescription Opioid Use. Follow up: Private Physician; When: 2 - 3 days; Reason: Recheck today's complaints, Continuance of care, Re-evaluation by your physician. Problem is new. Symptoms have improved. [facility] 23:29 22:14 07/25/2018 22:14 Discharged to Home. Impression: Hydronephrosis with renal and ed1 ureteral calculous obstruction. Condition is Stable. Discharge Instructions: Kidney Stones, Kidney Stones, [id number], Hydronephrosis, Dietary Guidelines to Help Prevent Kidney Stones. Prescriptions for Tylenol-Codeine #3 300-30 mg Oral Tablet - take 2 tablet by ORAL route every 6 hours As needed; 30 tablet, Zofran 4 mg Oral Tablet - take 1 tablet by ORAL route every 12 hours As needed; 20 tablet, Flomax 0.4 mg Oral Capsule, Sust. Release 24 hr - take 1 capsule by ORAL route once daily 1/2 hour following the same meal each day; 30 capsule, Cipro 500 mg Oral Tablet - take 1 tablet by ORAL route every 12 hours for 7 days; 14 tablet. and Forms are Medication Reconciliation Form, Thank You Letter, Antibiotic Education, Prescription Opioid Use. Follow up: Private Physician; When: 2 - 3 days; Reason: Recheck today's complaints, Continuance of care, Re-evaluation by your physician. Follow up: Elsa Carmen; When: 2 - 3 days; Reason: Recheck today's complaints, Continuance of care, Re-evaluation by your physician. Problem is new. Symptoms have improved. sarah
--- NOTE | 2018-07-25 22:14 | ER ---
Nurse's Notes [facility] Name: Reese Goodrich Age: 62 yrs Sex: Male : 1955 Arrival Date: 07/25/2018 Time: 20:07 Bed 3 Private MD: Diagnosis: Hydronephrosis with renal and ureteral calculous obstruction Presentation: 07/25 20:12 Presenting complaint: Patient states: he was released from this hospital yesterday aa1 after having a lithotripsy for a kidney stone and about 2 hrs ago he began to have severe pain again in his RLQ and R low back. Transition of care: patient was not received from another setting of care. Onset of symptoms was July 25, 2018. Risk Assessment: Do you want to hurt yourself or someone else? Patient reports no desire to harm self or others. Initial Sepsis Screen: Does the patient meet any 2 criteria? No. Patient's initial sepsis screen is negative. Does the patient have a suspected source of infection? Yes: Acute abdominal pain. Care prior to arrival: None. 20:12 Method Of Arrival: Wheelchair aa1 20:12 Acuity: NIKA 3 aa1 Triage Assessment: 20:15 General: Appears uncomfortable, Behavior is restless. aa1 Historical: - Allergies: 20:15 No Known Allergies; aa1 - Home Meds: 20:15 Hydrocodone-Acetaminophen Oral [Active]; aa1 - PMHx: 20:15 Kidney stones; aa1 - PSHx: 20:15 Hernia repair; Lithotripsy; aa1 - Immunization history:: Flu vaccine is not up to date. - Social history:: Smoking status: Patient/guardian denies using tobacco. - Ebola Screening: : Patient denies exposure to infectious person Patient denies travel to an Ebola-affected area in the 21 days before illness onset No symptoms or risks identified at this time. - Family history:: not pertinent. Screenin:26 Abuse screen: Denies threats or abuse. Denies injuries from another. Nutritional ed1 screening: No deficits noted. Tuberculosis screening: Tuberculosis screening: No symptoms or risk factors identified. Fall Risk None identified. Assessment: 20:26 General: Appears uncomfortable, Behavior is calm, cooperative. Pain: Complains of pain ed1 in right upper quadrant and right lower quadrant Pain radiates to back Pain currently is 10 out of 10 on a pain scale. Quality of pain is described as sharp, Pain began 2 hours ago. Is continuous, Also complains of nausea. Neuro: Level of Consciousness is awake, alert, obeys commands, Oriented to person, place, time, situation. Cardiovascular: Denies chest pain, Heart tones S1 S2 present Capillary refill < 3 seconds in bilateral fingers. Respiratory: Airway is patent Respiratory effort is even, unlabored, Respiratory pattern is regular, symmetrical, Breath sounds are clear bilaterally. Denies cough, shortness of breath. GI: Abdomen is round Bowel sounds present X 4 quads. Abd is soft X 4 quads Abdomen is tender to palpation in right upper quadrant Reports upper abdominal pain, nausea, Patient currently denies diarrhea, vomiting. : Reports burning with urination. EENT: No signs and/or symptoms were reported regarding the EENT system. Derm: Skin is intact, is healthy with good turgor, Skin is clammy, Skin is normal, Skin temperature is warm. Musculoskeletal: Circulation, motion, and sensation intact. Range of motion: intact in all extremities. 21:20 Reassessment: Patient appears in no apparent distress at this time. Patient and/or ed1 family updated on plan of care and expected duration. Pain level reassessed. Patient is alert, oriented x 3, equal unlabored respirations, skin warm/dry/pink. Patient states feeling better. Patient states symptoms have improved. 23:26 Reassessment: Patient appears in no apparent distress at this time. Patient and/or ed1 family updated on plan of care and expected duration. Pain level reassessed. Patient is alert, oriented x 3, equal unlabored respirations, skin warm/dry/pink. Patient denies pain at this time. Vital Signs: 20:15 BP 156 / 102; Pulse 81; Resp 28; Temp 97.3; Pulse Ox 97% on R/A; Weight 85.73 kg; aa1 Height 5 ft. 6 in. (167.64 cm); Pain 10/10; 21:20 BP 128 / 91; Pulse 76; Resp 16; Pulse Ox 95% on R/A; Pain 2/10; ed1 21:21 Pain 2/10; ed1 21:22 Pain 2/10; ed1 23:26 BP 117 / 76; Pulse 70; Resp 16; Temp 97.5(O); Pulse Ox 100% on R/A; Pain 0/10; ed1 20:15 Body Mass Index 30.51 (85.73 kg, 167.64 cm) aa1 ED Course: 20:07 Patient arrived in ED. es 20:14 Triage completed. aa1 20:15 Arm band placed on left wrist. Patient placed in an exam room, on a stretcher. aa1 20:25 Elsy Horton, RN is Primary Nurse. ed1 20:26 Patient has correct armband on for positive identification. Placed in gown. Bed in low ed1 position. Call light in reach. Adult w/ patient. Pulse ox on. NIBP on. 20:29 Awaiting ED provider evaluation. ed1 20:30 Inserted saline lock: 20 gauge in right antecubital area, using aseptic technique. lp1 Blood collected. 20:30 Initial lab(s) drawn, by me, sent to lab. lp1 20:32 Silverio Loya MD is Attending Physician. sarah 20:[address] vm2 20:50 CT completed. Patient tolerated procedure well. Patient moved back from CT. vm2 20:51 CT Stone Protocol In Process Unspecified. EDMS 22:14 Elsa Carmen MD is Referral Physician. sarah 23:26 No provider procedures requiring assistance completed. IV discontinued, intact, ed1 bleeding controlled, No redness/swelling at site. Pressure dressing applied. Administered Medications: 20:42 Drug: NS 0.9% 1000 ml Route: IV; Rate: 1 bolus; Site: right antecubital; ed1 22:08 Follow up: IV Status: Completed infusion; IV Intake: 1000ml ed1 20:42 Drug: TORadol 30 mg Route: IVP; Site: right antecubital; ed1 21:22 Follow up: Pain 2/10 Adult; Response: No adverse reaction; Pain is decreased ed1 20:43 Drug: morphine 4 mg Route: IVP; Site: right antecubital; ed1 21:21 Follow up: Pain 2/10 Adult; Response: No adverse reaction; Pain is decreased ed1 20:46 Drug: Zofran 4 mg Route: IVP; Site: right antecubital; ed1 21:21 Follow up: Response: No adverse reaction; Nausea is decreased ed1 22:07 Drug: Rocephin - (cefTRIAXone) 1 grams Route: IVPB; Infused Over: 30 mins; Site: right ed1 antecubital; 22:20 Follow up: Response: No adverse reaction; IV Status: Completed infusion; IV Intake: [id number] 22:08 Drug: Flomax 0.4 mg Route: PO; ed1 23:28 Follow up: Response: No adverse reaction ed1 22:11 Drug: NS 0.9% 1000 ml Route: IV; Rate: 1 bolus; Site: right antecubital; ed1 23:28 Follow up: IV Status: Completed infusion; IV Intake: 1000ml ed1 Intake: 22:08 IV: 1000ml; Total: 1000ml. ed1 22:20 IV: 10ml; Total: 1010ml. ed1 23:28 IV: 1000ml; Total: 2010ml. ed1 Outcome: 22:14 Discharge ordered by . sarah 23:26 Discharged to home ambulatory, with family. ed1 23:26 Condition: good 23:26 Discharge instructions given to patient, family, Instructed on discharge instructions, follow up and referral plans. medication usage, Demonstrated understanding of instructions, follow-up care, medications, Prescriptions given X 4. 23:29 Patient left the ED. ed1 Signatures: Dispatcher [employer] Rebeca Parrish RN RN [email or web address] Silverio Loya MD MD cha Salyer, Edna es Riggs, Erika, RN RN ed1 Mandie Power RN RN 1 Leticia Espinosa [facility]
[2018-07-25 23:38] VITALS: BP 117/76; TEMP 97.5; O2SAT 100
== END 2018-07-25 23:29 | disposition home or self-care (01) ==
LOC: ER 20:04
DX: N13.2 Hydronephrosis with renal and ureteral calculous obstruction (principal); K80.20 Calculus of gallbladder without cholecystitis without obstruction
CPT/HCPCS: 36415; 74176; 76377; 80048; 80076; 81003; 83690; 85025; 87086; 87088; 96361; 96374; 96375; 99284; J0696; J2405; J7030